=== PATIENT | female | born 1940 | race Caucasian/White ===

== ENCOUNTER 2019-07-17 08:16 | Outpatient (CLI) | payer MEDICARE ==
--- NOTE | 2019-07-17 09:25 | BD ---
BONE DENSITOMETRY USING DEXA: Date: 07/17/19 HISTORY: 79-year-old female with age-related osteoporosis without current pathological fracture. FINDINGS: Lumbar Spine: BMD (g/cm2) L1 0.916 T-Score: -0.7 Z-Score: 1.7 L2 1.022 T-Score: -0.1 Z-Score: 2.6 L3 1.030 T-Score: -0.5 Z-Score: 2.3 L4 1.109 T-Score: -0.4 Z-Score: 3.3 L1-L4 1.022 T-Score: -0.2 Z-Score: 2.5 Femoral Neck: 0.550 T-Score: -2.7 Z-Score: -0.3 Total Femur: 0.761 T-Score: -1.5 Z-Score: 0.6 IMPRESSION: Osteoporosis. POS: [facility]
== END 2019-07-17 08:17 | disposition home or self-care (01) ==
LOC: BICMAMMO 08:16
PROVIDERS: ATTEND Family Medicine
DX: M81.0 Age-related osteoporosis without current pathological fracture (principal)
CPT/HCPCS: 77080

== ENCOUNTER 2021-02-12 14:49 | Outpatient (CLI) | payer MEDICARE | END 2021-02-12 14:50 | disposition home or self-care (01) | LOC: BICRAD 14:49 | PROVIDERS: ATTEND Family Medicine | DX: T17.908A Unspecified foreign body in respiratory tract, part unspecified causing other injury, initial encounter (principal) | CPT/HCPCS: 71046 ==

== ENCOUNTER 2023-08-07 21:14 | Emergency (ER) | payer MEDICARE | END 2023-08-07 21:54 | disposition home or self-care (01) | LOC: ERS 21:14 | DX: S02.5XXA Fracture of tooth (traumatic), initial encounter for closed fracture (principal); S51.801A Unspecified open wound of right forearm, initial encounter; S00.31XA Abrasion of nose, initial encounter; S00.511A Abrasion of lip, initial encounter; W21.05XA Struck by basketball, initial encounter; Y93.67 Activity, basketball | CPT/HCPCS: 99283 ==

== ENCOUNTER 2024-06-09 11:28 | Outpatient (CLI) | payer MEDICARE | END 2024-06-12 13:00 | disposition home or self-care (01) | LOC: MRI 11:28 | PROVIDERS: ATTEND Family Medicine | DX: M23.91 Unspecified internal derangement of right knee (principal); M25.461 Effusion, right knee; M71.21 Synovial cyst of popliteal space [Baker], right knee; S83.241A Other tear of medial meniscus, current injury, right knee, initial encounter; S83.281A Other tear of lateral meniscus, current injury, right knee, initial encounter; M84.451A Pathological fracture, right femur, initial encounter for fracture ==